=== PATIENT | female | born 2000 | race Hispanic/Latino ===

== ENCOUNTER 2021-10-26 21:12 | Inpatient (IN) | payer MEDICAID ==
[~2021-10-26] VITALS: Ht 160 cm; Wt 97.1 kg
[2021-10-26] MEDS ORDERED: PROMETHAZINE HCL 25 MG/ML 1ML AMPULE IM PRN (21:30)
[2021-10-26] MEDS ORDERED: MEPERIDINE-PF 50 MG/ML SYG IM PRN (21:30)
[2021-10-26] MEDS ORDERED: DINOPROSTONE 10 MG VAGINAL SUPP VG SCH (22:00)
[2021-10-26 22:21] LABS: APPEARANCE,URINE CLEAR (CLEAR); BILIRUBIN,URINE NEGATIVE (NEGATIVE); COLOR,URINE YELLOW (YELLOW); GLUCOSE, URINE (UA) NEGATIVE (NEGATIVE); KETONES,URINE NEGATIVE (NEGATIVE); LEUKOCYTE ESTERASE ,URINE NEGATIVE (NEGATIVE); NITRATE,URINE NEGATIVE (NEGATIVE); OCCULT BLOOD,URINE NEGATIVE (NEGATIVE); PH,URINE 6.5 (5.0-8.0); PROTEIN,URINE NEGATIVE (NEGATIVE); UROBILINOGEN,URINE 0.2 mg/dL (0.2-1.0)
[2021-10-26 22:27] LABS: HEMATOCRIT 30.9 % (36-48); MEAN CORPUSCULAR HGB CONC 34.3 g/dL (32.0-36.0); MEAN CORPUSCULAR VOLUME 81.7 fL (80-100); RED BLOOD CELL COUNT(AUTO) 3.78 MIL/uL (4.00-5.50); RED CELL DISTRIBUTION WIDTH 13.2 % (11.0-15.5); WHITE BLOOD COUNT (AUTO) 8.4 K/uL (4.8-10.8)
[2021-10-26 22:31] LABS: AMPHET/METH SCREEN,URINE NEGATIVE (NEGATIVE); BARBITURATE SCREEN, URINE NEGATIVE (NEGATIVE); BENZODIAZEPINES SCREEN,URINE NEGATIVE (NEGATIVE); CANNABINOID SCREEN,URINE NEGATIVE (NEGATIVE); COCAINE SCREEN,URINE NEGATIVE (NEGATIVE); OPIATE SCREEN,URINE NEGATIVE (NEGATIVE); PHENCYCLIDINE SCREEN,URINE NEGATIVE (NEGATIVE)
[2021-10-27 02:03] VITALS: BP 138/74
[2021-10-27] MEDS ORDERED: FERR-82 PO (02:16)
[2021-10-27] MEDS ORDERED: PREN-196 PO (02:16)
[2021-10-27] MEDS ORDERED: NPH,100V SQ (02:50)
[2021-10-27] MEDS ORDERED: INSU100C6 SQ (02:50)
[2021-10-27] MEDS: LACTATED RINGERS 1000ML 1,000 ML IV PRN ×2 (05:21→14:38)
[2021-10-27] MEDS ORDERED: OXYTOCIN-LR 20 UNITS/1000 ML 1,000 ML IV SCH (07:00)
[2021-10-27 10:12] LABS: RAPID PLASMA REAGIN NONREACTIVE (NONREACTIVE)
[2021-10-27] MEDS ORDERED: CEFAZOLIN SODIUM 1 GM VIAL IVP PRN (16:30)
[2021-10-27] MEDS ORDERED: CALDOLOR 800MG+NS 250ML 250 ML IV PRN (16:30)
[2021-10-27] MEDS ORDERED: CEFAZOLIN SODIUM 1 GM VIAL ONE (16:34)
[2021-10-27] MEDS ORDERED: CALDOLOR 800MG+NS 250ML 250 ML IV ONE (16:34)
[2021-10-27] MEDS ORDERED: MORPHINE PF 100MG/10ML AMP IV ONE (16:47)
[2021-10-27] MEDS ORDERED: EPINEPHRINE PF 1MG AMP ONE (16:47)
[2021-10-27] MEDS ORDERED: OXYTOCIN 10 UNIT/1ML 10ML VIAL ONE (16:52)
[2021-10-27] MEDS ORDERED: ONDANSETRON 4MG INJ ONE (16:53)
[2021-10-27] MEDS ORDERED: CEFAZOLIN SODIUM 2 GM VIAL IV ONE (17:00)
[2021-10-27] MEDS ORDERED: MIDAZOLAM HCL 1 MG/ML 2ML VIAL ONE (17:22)
[2021-10-27] MEDS ORDERED: MEPERIDINE-PF 75 MG/ML SYG IM PRN (19:30)
[2021-10-27] MEDS ORDERED: OXYTOCIN-LR 20 UNITS/1000 ML 1,000 ML IV PRN (19:30)
[2021-10-27] MEDS ORDERED: PROMETHAZINE HCL 25 MG/ML 1ML AMPULE IM PRN (19:30)
[2021-10-27] MEDS ORDERED: 0.9%NACL 10ML VIAL IVP PRN (19:30)
[2021-10-27] MEDS ORDERED: DEXTROSE 5 %-0.45 % NACL 1,000 ML IV PRN (19:30)
[2021-10-27 20:40] VITALS: BP 120/72
[2021-10-27] MEDS ORDERED: NALOXONE HCL 0.4 MG/1 ML ML IVP PRN ×2 (21:00)
[2021-10-27] MEDS ORDERED: DiphenhydrAMINE HCL 50 MG/ML VIAL IVP PRN (21:00)
[2021-10-27] MEDS ORDERED: EPHEDRINE SULFATE 50 MG/ML AMPULE IVP PRN (21:00)
[2021-10-27] MEDS ORDERED: ONDANSETRON 4MG INJ IVP PRN (21:00)
[2021-10-27 22:58] VITALS: BP 126/71
[2021-10-28] MEDS ORDERED: ACETAMINOPHEN WITH CODEINE 1 TAB TAB PO PRN (01:00)
[2021-10-28] MEDS: LACTATED RINGERS 1000ML 1,000 ML IV PRN (01:02)
[2021-10-28] MEDS: CEFAZOLIN SODIUM 1 GM VIAL IVP SCH ×3 (01:02→17:00)
[2021-10-28 02:35] VITALS: BP 111/56
[2021-10-28] MEDS: CALDOLOR 800MG+NS 250ML 250 ML IV SCH ×2 (03:07→12:22)
[2021-10-28 06:37] LABS: HEMATOCRIT 27.7 % (36-48); MEAN CORPUSCULAR HEMOGLOBIN 27.5 pg (27.0-33.0); MEAN CORPUSCULAR HGB CONC 32.9 g/dL (32.0-36.0); MEAN CORPUSCULAR VOLUME 83.7 fL (80-100); RED BLOOD CELL COUNT(AUTO) 3.31 MIL/uL (4.00-5.50); RED CELL DISTRIBUTION WIDTH 13.2 % (11.0-15.5); WHITE BLOOD COUNT (AUTO) 7.4 K/uL (4.8-10.8)
[2021-10-28 06:40] VITALS: BP 125/74
[2021-10-28] MEDS ORDERED: DIPH,PERTUSS(ACELL),TET VAC/PF 0.5 ML VIAL IM SCH (09:30)
[2021-10-28] MEDS ORDERED: BISACODYL 10 MG SUPP.RECT RC PRN (09:30)
[2021-10-28] MEDS ORDERED: MEASLES/MUMPS/RUBELLA VACCINE, LIVE 0.5 ML/VIAL SQ SCH (09:30)
[2021-10-28] MEDS ORDERED: ACETAMINOPHEN 500 MG TABLET PO PRN (09:30)
[2021-10-28] MEDS ORDERED: HYDROCODONE/ACETAMINOPHEN 5/325 MG TAB PO PRN (09:30)
[2021-10-28] MEDS: SIMETHICONE 80 MG TAB.CHEW PO PRN ×2 (09:43→20:16)
[2021-10-28 11:10] VITALS: BP 116/62
[2021-10-28 19:30] VITALS: BP 133/80
[2021-10-28] MEDS: IBUPROFEN 600 MG TABLET PO PRN (20:16)
[2021-10-28] MEDS: DOCUSATE SODIUM 100 MG CAP PO SCH (20:16)
[2021-10-28 23:10] VITALS: BP 122/74
[2021-10-29 02:56] VITALS: BP 135/73
[2021-10-29] MEDS: IBUPROFEN 600 MG TABLET PO PRN ×2 (04:55→16:13)
[2021-10-29 08:10] VITALS: BP 121/74
[2021-10-29] MEDS: SIMETHICONE 80 MG TAB.CHEW PO PRN ×2 (09:08→16:13)
[2021-10-29] MEDS: DOCUSATE SODIUM 100 MG CAP PO SCH (09:08)
[2021-10-29 11:16] VITALS: BP 132/80
[2021-10-29 15:09] VITALS: BP 134/79
[2021-10-29] MEDS ORDERED: ACET-2079 PO (15:31)
== END 2021-10-29 17:05 | disposition home or self-care (01) | DRG 540 ==
LOC: LDH 21:12 → WSH 10-27 20:35
PROVIDERS: ADMIT Obstetrics & Gynecology; ATTEND Obstetrics & Gynecology
PROC: 10D00Z1 Extraction of Products of Conception, Low, Open Approach (ICD-10-PCS; principal; 2021-10-27 16:55)
PROC: 3E0234Z Introduction of Serum, Toxoid and Vaccine into Muscle, Percutaneous Approach (ICD-10-PCS; 2021-10-29)
PROC: 3E0134Z Introduction of Serum, Toxoid and Vaccine into Subcutaneous Tissue, Percutaneous Approach (ICD-10-PCS; 2021-10-29)
DX: O62.2 Other uterine inertia (principal); O24.92 Unspecified diabetes mellitus in childbirth; O99.214 Obesity complicating childbirth; Z37.0 Single live birth; Z3A.38 38 weeks gestation of pregnancy; Z79.4 Long term (current) use of insulin; Z23 Encounter for immunization
CPT/HCPCS: 36415; 59510; 80305; 81003; 82947; 82948; 85027; 86592; 86701; 86850; 86900; 86901; 87340; 87390; 90707; 90715; A4344; G0378; J0171; J0690; J1741; J2175; J2250; J2274; J2405; J2550; J2590; J7120

== ENCOUNTER 2021-12-15 10:26 | Emergency (ER) | payer MEDICAID ==
[~2021-12-15] VITALS: Ht 160 cm; Wt 85.7 kg
[~2021-12-15 10:26] MED LIST: ACET-2079 PO; FERR-82 PO; PREN-196 PO
[2021-12-15 11:24] LABS: BASOPHILS % (AUTO) 0.1 % (0.0-5.0); CREATININE 0.7 mg/dL (0.5-1.5); HEMATOCRIT 30.7 % (36-48); LYMPHOCYTES % (AUTO) 9.2 % (21.0-51.0); MEAN CORPUSCULAR HGB CONC 33.2 g/dL (32.0-36.0); MEAN CORPUSCULAR VOLUME 81.2 fL (80-100); MONOCYTES % (AUTO) 8.3 % (3.0-13.0); PLATELET COUNT (AUTO) 201 K/uL (130-400); POTASSIUM 3.6 mmol/L (3.5-5.1); RED BLOOD CELL COUNT(AUTO) 3.78 MIL/uL (4.00-5.50); RED CELL DISTRIBUTION WIDTH 12.5 % (11.0-15.5); WHITE BLOOD COUNT (AUTO) 7.7 K/uL (4.8-10.8)
[2021-12-15 11:28] LABS: ALBUMIN 2.9 g/dL (3.5-5.0); BILIRUBIN,TOTAL 0.9 mg/dL (0.2-1.0); TOTAL PROTEIN, SERUM 7.5 g/dL (6.0-8.3)
[2021-12-15] MEDS ORDERED: ONDANSETRON ODT 4MG TAB SL ONE (11:30)
[2021-12-15 12:16] VITALS: BP 118/68
[2021-12-15] MEDS ORDERED: ACETAMINOPHEN 500 MG TABLET PO ONE (13:00)
[2021-12-15] MEDS ORDERED: 0.9%NACL 1000ML 1,000 ML IV SCH ×2 (13:00→13:30)
[2021-12-15] MEDS ORDERED: IBUPROFEN 800 MG TAB PO ONE (13:00)
[2021-12-15 13:33] LABS: APPEARANCE,URINE Clear (CLEAR); BILIRUBIN,URINE Negative (NEGATIVE); COLOR,URINE Yellow (YELLOW); GLUCOSE, URINE (UA) TRACE mg/dL (NEGATIVE); KETONES,URINE Negative (NEGATIVE); LEUKOCYTE ESTERASE ,URINE Large (NEGATIVE); NITRATE,URINE Negative (NEGATIVE); OCCULT BLOOD,URINE Negative (NEGATIVE); PROTEIN,URINE Negative (NEGATIVE)
[2021-12-15] MEDS ORDERED: CEFTRIAXONE 1G VIAL IVP ONE (14:00)
[2021-12-15] MEDS ORDERED: CEPH500B PO (14:04)
[2021-12-15] MEDS ORDERED: ONDA4TAB10 PO (14:04)
[2021-12-15 14:15] LABS: BACTERIA,URINE Many /HPF (None Seen); RBC,URINE 0-1 /HPF (0-1); SQUAMOUS EPITHELIAL CELL,UR Rare /HPF (0-2)
== END 2021-12-15 14:38 | disposition home or self-care (01) ==
LOC: EDH 10:26
DX: K52.9 Noninfective gastroenteritis and colitis, unspecified (principal); N39.0 Urinary tract infection, site not specified; I95.1 Orthostatic hypotension; Z20.822 Contact with and (suspected) exposure to COVID-19; E11.9 Type 2 diabetes mellitus without complications; Z79.899 Other long term (current) drug therapy
CPT/HCPCS: 36415; 71045; 80053; 81001; 83605; 83690; 85025; 87040 ×2; 87077; 87088; 87186; 87635; 96361; 96374; 99284; C9803; J0696; J7030

== ENCOUNTER 2022-05-07 22:46 | Emergency (ER) | payer MEDICAID ==
[~2022-05-07] VITALS: Ht 162.6 cm; Wt 83.5 kg
[~2022-05-07 22:46] MED LIST changes: +CEPH500B PO; +ONDA4TAB10 PO
[2022-05-08] MEDS ORDERED: FLUORESCEIN SODIUM 1 STRIP STRIP OP SCH
[2022-05-08] MEDS ORDERED: TETRACAINE HCL 0.5% 4 ML OPHTH SOLN OP SCH
[2022-05-08] MEDS ORDERED: TETRACAINE HCL 0.5% 4 ML OPHTH SOLN OP ONE
[2022-05-08] MEDS ORDERED: FLUORESCEIN SODIUM 1 STRIP STRIP OP ONE (00:03)
[2022-05-08 00:05] VITALS: BP 128/62
[2022-05-08] MEDS ORDERED: ERYT1OIN7 OP (00:18)
== END 2022-05-08 00:21 | disposition home or self-care (01) ==
LOC: EDH 22:46
DX: S05.01XA Injury of conjunctiva and corneal abrasion without foreign body, right eye, initial encounter (principal); E11.9 Type 2 diabetes mellitus without complications; X58.XXXA Exposure to other specified factors, initial encounter; Y93.89 Activity, other specified; Y92.89 Other specified places as the place of occurrence of the external cause; Y99.8 Other external cause status

== ENCOUNTER 2022-05-18 22:06 | Emergency (ER) | payer MEDICAID ==
[~2022-05-18] VITALS: Ht 162.6 cm; Wt 84.4 kg
[~2022-05-18 22:06] MED LIST changes: +ERYT1OIN7 OP
[2022-05-18 23:42] VITALS: BP 130/74
== END 2022-05-18 23:48 | disposition home or self-care (01) ==
LOC: EDH 22:06
DX: B34.9 Viral infection, unspecified (principal); Z20.822 Contact with and (suspected) exposure to COVID-19; Z79.899 Other long term (current) drug therapy
CPT/HCPCS: 99283; 87635; 87880; 87804 ×2; C9803

== ENCOUNTER 2022-05-26 16:26 | Emergency (ER) | payer MEDICAID ==
[~2022-05-26] VITALS: Ht 162.6 cm; Wt 83.5 kg
[2022-05-26 16:31] VITALS: BP 122/61
[2022-05-26 17:33] LABS: BASOPHILS % (AUTO) 0.4 % (0.0-5.0); EOSINOPHILS % (AUTO) 1.5 % (0.0-8.0); HEMATOCRIT 33.7 % (36-48); LYMPHOCYTES % (AUTO) 30.4 % (21.0-51.0); MEAN CORPUSCULAR HEMOGLOBIN 27.3 pg (27.0-33.0); MEAN CORPUSCULAR HGB CONC 33.8 g/dL (32.0-36.0); MEAN CORPUSCULAR VOLUME 80.6 fL (80-100); MONOCYTES % (AUTO) 6.4 % (3.0-13.0); PLATELET COUNT (AUTO) 315 K/uL (130-400); RED BLOOD CELL COUNT(AUTO) 4.18 MIL/uL (4.00-5.50); WHITE BLOOD COUNT (AUTO) 6.7 K/uL (4.8-10.8)
[2022-05-26 17:41] LABS: CREATININE 0.7 mg/dL (0.5-1.5); POTASSIUM 4.2 mmol/L (3.5-5.1)
[2022-05-26 17:46] LABS: ALBUMIN 3.5 g/dL (3.5-5.0)
[2022-05-26 18:08] LABS: APPEARANCE,URINE CLEAR (CLEAR); BILIRUBIN,URINE NEGATIVE (NEGATIVE); COLOR,URINE LIGHT-YELLOW (YELLOW); GLUCOSE, URINE (UA) NEGATIVE (NEGATIVE); KETONES,URINE NEGATIVE (NEGATIVE); LEUKOCYTE ESTERASE ,URINE NEGATIVE Leu/uL (NEGATIVE); NITRATE,URINE NEGATIVE (NEGATIVE); OCCULT BLOOD,URINE NEGATIVE (NEGATIVE); PH,URINE 6.5 (5.0-8.0); PROTEIN,URINE 10 mg/dL (NEGATIVE); UROBILINOGEN,URINE 0.2 mg/dL (0.2-1.0)
[2022-05-26 18:19] LABS: BACTERIA,URINE RARE /HPF (None Seen); MUCUS,URINE RARE LPF (None Seen); RBC,URINE 0-1 /HPF (0-1); SQUAMOUS EPITHELIAL CELL,UR RARE /HPF (0-2); WBC,URINE 0-1 /HPF (0-1)
== END 2022-05-26 18:55 | disposition home or self-care (01) ==
LOC: EDH 16:26
DX: B34.9 Viral infection, unspecified (principal); E11.9 Type 2 diabetes mellitus without complications; Z79.899 Other long term (current) drug therapy; Z98.890 Other specified postprocedural states
CPT/HCPCS: 36415; 71045; 80053; 81001; 83690; 85025; 93005

== ENCOUNTER 2024-03-06 19:49 | Emergency (ER) | payer MEDICAID ==
[~2024-03-06] VITALS: Ht 160 cm; Wt 90.7 kg
[~2024-03-06 19:49] MED LIST changes: +ONDA-243 PO; -ONDA4TAB10 PO
[2024-03-06 20:24] LABS: RAPID GROUP A STREP negative (NEGATIVE)
[2024-03-06 20:29] LABS: INFLUENZA TYPE A Negative For Type A (NEGATIVE); INFLUENZA TYPE B Negative For Type B (NEGATIVE)
[2024-03-06 20:30] LABS: COVID19 (SARS ANTIGEN RAPID) PRESUMPTIVE NEGATIVE (NEGATIVE)
[2024-03-06 20:58] LABS: MEAN CORPUSCULAR HEMOGLOBIN 28.1 pg (27.0-33.0); MEAN CORPUSCULAR HGB CONC 33.8 g/dL (32.0-36.0); MEAN CORPUSCULAR VOLUME 83.1 fL (79-99); RED BLOOD CELL COUNT(AUTO) 3.85 MIL/uL (4.00-5.50); RED CELL DISTRIBUTION WIDTH 13.7 % (11.0-15.5); WHITE BLOOD COUNT (AUTO) 7.5 K/uL (4.8-10.8)
[2024-03-06 21:08] LABS: CREATININE 0.5 mg/dL (0.5-1.0); POTASSIUM 3.5 mmol/L (3.5-5.1)
[2024-03-06 21:13] LABS: ALBUMIN 2.6 g/dL (3.5-5.0); BILIRUBIN,TOTAL 0.3 mg/dL (0.2-1.0); TOTAL PROTEIN, SERUM 6.7 g/dL (6.0-8.3)
[2024-03-06 21:25] VITALS: BP 118/55; PULSE 76; RESP 16; O2SAT 99
== END 2024-03-06 21:46 | disposition home or self-care (01) ==
LOC: EDH 19:49
DX: O99.512 Diseases of the respiratory system complicating pregnancy, second trimester (principal); J06.9 Acute upper respiratory infection, unspecified; Z20.822 Contact with and (suspected) exposure to COVID-19; O24.112 Pre-existing type 2 diabetes mellitus, in pregnancy, second trimester; Z79.2 Long term (current) use of antibiotics; Z79.899 Other long term (current) drug therapy; Z98.890 Other specified postprocedural states; Z3A.22 22 weeks gestation of pregnancy
CPT/HCPCS: 36415; 80053; 85027; 87426; 87804; 87880

== ENCOUNTER 2024-03-23 18:59 | Observation (INO) | payer MEDICAID ==
[~2024-03-23] VITALS: Ht 162.6 cm; Wt 90.7 kg
[2024-03-23 19:00] VITALS: BP 126/73; PULSE 83; RESP 20; TEMP 97.8
[2024-03-23 20:37] LABS: APPEARANCE,URINE CLEAR (CLEAR); BILIRUBIN,URINE NEGATIVE (NEGATIVE); COLOR,URINE LIGHT-YELLOW (YELLOW); GLUCOSE, URINE (UA) NEGATIVE (NEGATIVE); KETONES,URINE NEGATIVE (NEGATIVE); LEUKOCYTE ESTERASE ,URINE NEGATIVE Leu/uL (NEGATIVE); NITRATE,URINE NEGATIVE (NEGATIVE); OCCULT BLOOD,URINE NEGATIVE (NEGATIVE); PROTEIN,URINE NEGATIVE (NEGATIVE); UROBILINOGEN,URINE 0.2 mg/dL (0.2-1.0)
[2024-03-23 20:41] LABS: ADD UA MICROSCOPIC NO
== END 2024-03-23 20:48 | disposition home or self-care (01) ==
LOC: EDH 18:59 → LDH 19:00
PROVIDERS: ADMIT Obstetrics & Gynecology; ATTEND Obstetrics & Gynecology
DX: O24.419 Gestational diabetes mellitus in pregnancy, unspecified control (principal); O99.013 Anemia complicating pregnancy, third trimester; D64.9 Anemia, unspecified; Z3A.38 38 weeks gestation of pregnancy
CPT/HCPCS: 81003; G0378 ×2; G0379; 59025

== ENCOUNTER 2024-04-14 21:04 | Emergency (ER) | payer MEDICAID ==
[~2024-04-14] VITALS: Ht 162.6 cm; Wt 94.3 kg
[2024-04-14] MEDS: 0.9%NACL 1000ML 1,000 ML IV ONE (21:22)
[2024-04-14 21:26] LABS: APPEARANCE,URINE CLEAR (CLEAR); BILIRUBIN,URINE NEGATIVE (NEGATIVE); COLOR,URINE LIGHT-YELLOW (YELLOW); GLUCOSE, URINE (UA) NEGATIVE (NEGATIVE); KETONES,URINE NEGATIVE (NEGATIVE); LEUKOCYTE ESTERASE ,URINE NEGATIVE Leu/uL (NEGATIVE); NITRATE,URINE NEGATIVE (NEGATIVE); OCCULT BLOOD,URINE NEGATIVE (NEGATIVE); PH,URINE 6.5 (5.0-8.0); PROTEIN,URINE NEGATIVE (NEGATIVE); UROBILINOGEN,URINE 0.2 mg/dL (0.2-1.0)
[2024-04-14 21:27] LABS: ADD UA MICROSCOPIC YES
[2024-04-14 21:28] LABS: BACTERIA,URINE RARE /HPF (None Seen); MUCUS,URINE RARE LPF (None Seen); RBC,URINE 0-1 /HPF (0-1); SQUAMOUS EPITHELIAL CELL,UR RARE /HPF (0-2)
[2024-04-14 21:31] LABS: BASOPHILS # (AUTO) 0.02 K/uL (0.00-0.20); BASOPHILS % (AUTO) 0.2 % (0.0-5.0); EOSINOPHILS # (AUTO) 0.05 K/uL (0.00-0.70); EOSINOPHILS % (AUTO) 0.6 % (0.0-8.0); HEMATOCRIT 29.5 % (36-48); IMMATURE GRANULOCYTE ABSOLUTE 0.04 K/uL (0-1); LYMPHOCYTES # (AUTO) 2.1 K/uL (1.0-4.8); LYMPHOCYTES % (AUTO) 23.9 % (21.0-51.0); MEAN CORPUSCULAR HEMOGLOBIN 28.6 pg (27.0-33.0); MEAN CORPUSCULAR HGB CONC 34.6 g/dL (32.0-36.0); MEAN CORPUSCULAR VOLUME 82.6 fL (79-99); MONOCYTES # (AUTO) 0.5 K/uL (0.1-1.0); MONOCYTES % (AUTO) 5.9 % (3.0-13.0); NEUTROPHILS # (AUTO) 6.1 K/uL (1.8-7.7); NEUTROPHILS % (AUTO) 68.9 % (40.0-77.0); PLATELET COUNT (AUTO) 215 K/uL (130-400); RED BLOOD CELL COUNT(AUTO) 3.57 MIL/uL (4.00-5.50); RED CELL DISTRIBUTION WIDTH 13.2 % (11.0-15.5); WHITE BLOOD COUNT (AUTO) 8.8 K/uL (4.8-10.8)
[2024-04-14 21:39] LABS: CREATININE 0.5 mg/dL (0.5-1.0); POTASSIUM 3.6 mmol/L (3.5-5.1)
[2024-04-14 21:40] VITALS: BP 119/51; PULSE 84; RESP 18; TEMP 98.1; O2SAT 84
[2024-04-14 21:44] LABS: ALBUMIN 2.5 g/dL (3.5-5.0); BILIRUBIN,DIRECT 0.1 mg/dL (0.0-0.3); BILIRUBIN,TOTAL 0.3 mg/dL (0.2-1.0)
[2024-04-14] MEDS ORDERED: INSU100I43 SQ (23:01)
[2024-04-14] MEDS ORDERED: INSU100I45 SQ (23:01)
== END 2024-04-14 23:31 | disposition home or self-care (01) ==
LOC: EDH 21:04
DX: O24.414 Gestational diabetes mellitus in pregnancy, insulin controlled (principal); Z3A.28 28 weeks gestation of pregnancy; Z79.899 Other long term (current) drug therapy; Z98.890 Other specified postprocedural states
CPT/HCPCS: 99284; 76805; 80076; 80048; 85025; 82948; 81001; 36415; J7030